=== PATIENT | male | born 1980 | race African-American/Black ===

== ENCOUNTER 2023-02-14 08:52 | Emergency (ER) | payer MEDICAID, OTHER ==
[2023-02-14] MEDS ORDERED: HYDROcodone/Acetaminophen 5/325 mg Tablet ONE (09:08)
[2023-02-14] MEDS ORDERED: Ibuprofen 200 MG TAB ONE (09:09)
== END 2023-02-14 09:49 | disposition home or self-care (01) ==
LOC: CSHERS 08:52
DX: M25.512 Pain in left shoulder (principal); M79.602 Pain in left arm; F17.210 Nicotine dependence, cigarettes, uncomplicated

== ENCOUNTER 2023-04-18 19:29 | Emergency (ER) | payer OTHER ==
[2023-04-18 19:54] LABS: #Basophils 0.1 10x3/uL (0.0-0.2); #Eosinphils 0.1 10x3/uL (0.0-0.5); #Monocytes 0.9 10x3/uL (0.0-1.1); #Neutrophils 7.6 10x3/uL (1.5-8.4); %Basophils 0.7 % (0.0-2.0); %Eosinophils 0.6 % (0.0-6.0); %Lymphocytes 28.1 % (18.0-47.0); %Monocytes 7.3 % (0.0-10.0); %Neutrophils 63.1 % (40.0-75.0); Hematocrit 30.2 % (38.8-50.0); Hemoglobin 9.6 g/dL (13.5-17.5); Mean Corpuscular HGB CONC 31.8 g/dL (32.0-36.0); Mean Corpuscular Hemoglobin 28.1 pg (27.0-33.0); Mean Corpuscular Volume 88.3 fl (81.2-95.1); Mean Platelet Volume 8.8 fl (7.4-10.4); Platelet Count 811 10x3/uL (150-450); RBC Distribution Width 15.7 % (11.5-14.5); Red Blood Cell (RBC) Count 3.42 10x6/uL (4.32-5.72)
[2023-04-18 20:09] LABS: ALT (SGPT) 19 U/L (8-55); AST (SGOT) 13 U/L (5-34); Albumin 3.6 g/dL (3.5-5.0); Alkaline Phosphatase 176 U/L (40-110); Anion Gap 13 mmol/L (10-20); BUN (Urea Nitrogen) 10 mg/dL (8.9-20.6); Bilirubin, Total 0.3 mg/dL (0.2-1.2); Calc. Creatinine Clearance 0 mL/min (70-130); Carbon Dioxide 25 mmol/L (22-29); Chloride 104 mmol/L (98-107); Estimated GFR 103; Globulin 4.4 g/dL (2.4-3.5); Glucose 108 mg/dL (70-105); Potassium 3.7 mmol/L (3.5-5.1); Sodium 138 mmol/L (136-145); Troponin I Less than 0.010 ng/mL (< 0.028)
[2023-04-18] MEDS ORDERED: Ketorolac Tromethamine 30 MG (1 mL) VIAL ONE (20:56)
[2023-04-18] MEDS ORDERED: Morphine 4 MG/ML VIAL ONE (20:56)
[2023-04-18] MEDS ORDERED: methylPREDNISolone Sod Succ/PF 125 MG/2 ML VIAL ONE (21:27)
== END 2023-04-18 22:55 | disposition home or self-care (01) ==
LOC: CSHERS 19:29
DX: M94.0 Chondrocostal junction syndrome [Tietze] (principal); M06.9 Rheumatoid arthritis, unspecified; M10.9 Gout, unspecified; F17.200 Nicotine dependence, unspecified, uncomplicated
CPT/HCPCS: 71045; 80053; 84484; 85025; 93005; 96374; 96375; J1885; J2270; J2930

== ENCOUNTER 2024-10-31 23:06 | Inpatient (IN) | payer OTHER ==
[~2024-10-31 23:06] MED LIST: Iopamidol 370 76% 100 ML VIAL ONE
[2024-10-31 23:23] LABS: #Basophils 0.05 10x3/uL (0.0-0.2); #Eosinophils 0.11 10x3/uL (0.0-0.5); #Monocytes 0.55 10x3/uL (0.0-1.1); #Neutrophils 5.19 10x3/uL (1.5-8.4); %Basophils 0.6 % (0.0-2.0); %Eosinophils 1.3 % (0.0-6.0); %Lymphocytes 29.5 % (18.0-47.0); %Monocytes 6.5 % (0.0-10.0); %Neutrophils 61.9 % (40.0-75.0); Hematocrit 35.7 % (38.8-50.0); Hemoglobin 11.5 g/dL (13.5-17.5); Mean Corpuscular Hemoglobin 30.9 pg (27.0-33.0); Mean Corpuscular Volume 96.0 fL (81.2-95.1); Platelet Count 365 10x3/uL (150-450); Red Blood Cell (RBC) Count 3.72 10x6/uL (4.32-5.72); White Blood Cell (WBC) Count 8.40 10x3/uL (3.5-10.5)
[2024-10-31 23:31] LABS: INR-International Normal Ratio 1.0; PTT 24.2 sec (22.0-33.0); Prothrombin Time 11.1 sec (9.5-12.1)
[2024-10-31 23:35] LABS: ALT (SGPT) 18 U/L (Less than 45); AST (SGOT) 17 U/L (11-34); Albumin 3.9 g/dL (3.1-4.5); Alkaline Phosphatase 159 U/L (40-110); Anion Gap 15 mmol/L (10-20); BUN (Urea Nitrogen) 13 mg/dL (8.9-20.6); Bilirubin, Total 0.5 mg/dL (0.3-1.2); Calc. Creatinine Clearance 0 mL/min (70-130); Calcium 9.2 mg/dL (7.8-10.44); Carbon Dioxide 23 mmol/L (22-29); Chloride 107 mmol/L (98-107); Globulin 3.4 g/dL (2.4-3.5); Glucose 133 mg/dL (70-105); Potassium 3.9 mmol/L (3.5-5.1); Sodium 141 mmol/L (136-145)
[2024-10-31 23:39] LABS: Acetaminophen Less than 10 mcg/mL (Less than 10); Salicylate Less than 8.0 mg/dL (Less than 8.0)
[2024-10-31 23:41] LABS: Troponin I Less than 0.010 ng/mL (< 0.028)
[2024-11-01] MEDS ORDERED: Aspirin Chewable 81 MG TAB ONE (00:07)
[2024-11-01] MEDS ORDERED: Ondansetron PF 4 MG/2 ML Vial IVP PRN (00:07)
[2024-11-01 01:40] VITALS: BMI 25.9
[2024-11-01 03:44] LABS: #Basophils 0.05 10x3/uL (0.0-0.2); #Eosinophils 0.07 10x3/uL (0.0-0.5); #Monocytes 0.50 10x3/uL (0.0-1.1); #Neutrophils 5.40 10x3/uL (1.5-8.4); %Basophils 0.6 % (0.0-2.0); %Eosinophils 0.8 % (0.0-6.0); %Lymphocytes 28.7 % (18.0-47.0); %Monocytes 5.9 % (0.0-10.0); %Neutrophils 63.8 % (40.0-75.0); Hematocrit 35.4 % (38.8-50.0); Hemoglobin 11.3 g/dL (13.5-17.5); Mean Corpuscular Hemoglobin 30.5 pg (27.0-33.0); Mean Corpuscular Volume 95.7 fL (81.2-95.1); Platelet Count 372 10x3/uL (150-450); Red Blood Cell (RBC) Count 3.70 10x6/uL (4.32-5.72); White Blood Cell (WBC) Count 8.47 10x3/uL (3.5-10.5)
[2024-11-01 04:04] LABS: ALT (SGPT) 15 U/L (Less than 45); AST (SGOT) 15 U/L (11-34); Albumin 3.8 g/dL (3.1-4.5); Alkaline Phosphatase 153 U/L (40-110); Anion Gap 12 mmol/L (10-20); BUN (Urea Nitrogen) 13 mg/dL (8.9-20.6); Bilirubin, Total 0.6 mg/dL (0.3-1.2); Calc. Creatinine Clearance 96 mL/min (70-130); Calcium 9.5 mg/dL (7.8-10.44); Carbon Dioxide 27 mmol/L (22-29); Cardiac Risk 5.2 (Less than 4.5); Chloride 107 mmol/L (98-107); Cholesterol 166 mg/dl (< 200 Desired); Globulin 3.7 g/dL (2.4-3.5); Glucose 101 mg/dL (70-105); HDL Cholesterol 32 mg/dL (>60 Neg Risk); LDL Cholesterol, Calculated 110 mg/dL; Potassium 4.3 mmol/L (3.5-5.1); Sodium 142 mmol/L (136-145); Triglycerides 120 mg/dL (Less than 150)
[2024-11-01 07:00] LABS: Glucose, Urine (Dipstick) Normal (Negative); Leukocyte 100 (Negative); Protein, Urine (Dipstick) 15 mg/dl (Neg-Trace); Specific Gravity, Urine 1.010 (1.005-1.030)
[2024-11-01 07:06] LABS: Bacteria/HPF None Seen HPF (None Seen); CAUTI Indications for Culture Alt mental st,lethar; RBC/HPF 0-3 HPF (0-3)
[2024-11-01 07:07] LABS: Urine Culture Reflex No No
[2024-11-01] MEDS: Famotidine/PF 20 mg/2ml Vial SLOW IVP SCH (07:47)
[2024-11-01] MEDS: Enoxaparin 40 MG (0.4 mL) SYRINGE SC SCH (09:11)
[2024-11-01] MEDS: Aspirin 81 mg Enteric Coated Tablet PO SCH (09:12)
[2024-11-01] MEDS: Famotidine 20 MG TAB PO SCH (09:12)
[2024-11-01] MEDS: predniSONE 20 MG TAB PO SCH (09:12)
[2024-11-01] MEDS: Ibuprofen 800 MG TAB PO SCH (09:13)
[2024-11-01] MEDS ORDERED: Bisacodyl 10 MG SUPP PR PRN (09:36)
[2024-11-01] MEDS ORDERED: Senokot S 8.6-50 MG TAB PO PRN (09:36)
[2024-11-01] MEDS ORDERED: Calcium Carbonate 500 MG ChewTAB PO PRN (09:36)
[2024-11-01 09:50] LABS: Cocaine Metabolite Screen Negative (Negative); THC/Cannabinoid Screen PRELIM POSITIVE (Negative); Tricyclic Screen Negative (Negative)
[2024-11-01] MEDS: Acetaminophen 325 MG TAB PO SCH (11:35)
[2024-11-01] MEDS: Acetaminophen 325 MG TAB PO PRN (21:06)
[2024-11-02 04:02] LABS: #Basophils 0.03 10x3/uL (0.0-0.2); #Eosinophils 0.06 10x3/uL (0.0-0.5); #Monocytes 0.46 10x3/uL (0.0-1.1); #Neutrophils 4.46 10x3/uL (1.5-8.4); %Basophils 0.4 % (0.0-2.0); %Eosinophils 0.7 % (0.0-6.0); %Lymphocytes 38.2 % (18.0-47.0); %Monocytes 5.6 % (0.0-10.0); %Neutrophils 54.7 % (40.0-75.0); Hematocrit 32.3 % (38.8-50.0); Hemoglobin 10.6 g/dL (13.5-17.5); Mean Corpuscular Hemoglobin 30.6 pg (27.0-33.0); Mean Corpuscular Volume 93.4 fL (81.2-95.1); Platelet Count 357 10x3/uL (150-450); Red Blood Cell (RBC) Count 3.46 10x6/uL (4.32-5.72); White Blood Cell (WBC) Count 8.16 10x3/uL (3.5-10.5)
[2024-11-02 04:22] LABS: Anion Gap 14 mmol/L (10-20); BUN (Urea Nitrogen) 11 mg/dL (8.9-20.6); Calc. Creatinine Clearance 101 mL/min (70-130); Calcium 8.7 mg/dL (7.8-10.44); Carbon Dioxide 23 mmol/L (22-29); Chloride 105 mmol/L (98-107); Glucose 93 mg/dL (70-105); Sodium 138 mmol/L (136-145)
[2024-11-02 04:28] LABS: Potassium 4.1 mmol/L (3.5-5.1)
[2024-11-04 06:11] LABS: Anion Gap 10 mmol/L (10-20); BUN (Urea Nitrogen) 11 mg/dL (8.9-20.6); Calc. Creatinine Clearance 83 mL/min (70-130); Calcium 8.7 mg/dL (7.8-10.44); Carbon Dioxide 27 mmol/L (22-29); Chloride 108 mmol/L (98-107); Glucose 94 mg/dL (70-105); Potassium 3.8 mmol/L (3.5-5.1); Sodium 141 mmol/L (136-145)
[2024-11-04] MEDS ORDERED: PROPOFOL 40 ML ONE (11:28)
[2024-11-04] MEDS ORDERED: Lidocaine 1% PF 5 ML VIAL ONE (11:29)
[2024-11-04] MEDS ORDERED: Lidocaine 1% (PF) 30 ML VIAL ONE (11:55)
[2024-11-04] MEDS ORDERED: Triple Antibiotic Oint 1 GM Packet ONE (11:56)
[2024-11-04] MEDS ORDERED: PHENYLEPHRINE-NS 100 MCG/ML 10 ML SYRINGE ONE (13:14)
[2024-11-04 15:19] VITALS: BMI 25.9
[2024-11-05] MEDS: HYDROcodone/Acetaminophen 5/325 mg Tablet PO PRN (09:10)
[2024-11-05] MEDS: Melatonin 3 MG TAB PO PRN (21:38)
[2024-11-06 04:09] LABS: #Basophils 0.05 10x3/uL (0.0-0.2); #Eosinophils 0.21 10x3/uL (0.0-0.5); #Monocytes 0.42 10x3/uL (0.0-1.1); #Neutrophils 3.10 10x3/uL (1.5-8.4); %Basophils 0.7 % (0.0-2.0); %Eosinophils 2.9 % (0.0-6.0); %Lymphocytes 47.9 % (18.0-47.0); %Monocytes 5.8 % (0.0-10.0); %Neutrophils 42.4 % (40.0-75.0); Hematocrit 34.2 % (38.8-50.0); Hemoglobin 11.2 g/dL (13.5-17.5); Mean Corpuscular Hemoglobin 30.8 pg (27.0-33.0); Mean Corpuscular Volume 94.0 fL (81.2-95.1); Platelet Count 373 10x3/uL (150-450); Red Blood Cell (RBC) Count 3.64 10x6/uL (4.32-5.72); White Blood Cell (WBC) Count 7.29 10x3/uL (3.5-10.5)
[2024-11-06 04:24] LABS: ALT (SGPT) 20 U/L (Less than 45); AST (SGOT) 21 U/L (11-34); Albumin 3.4 g/dL (3.1-4.5); Alkaline Phosphatase 136 U/L (40-110); Anion Gap 12 mmol/L (10-20); BUN (Urea Nitrogen) 13 mg/dL (8.9-20.6); Bilirubin, Total 0.3 mg/dL (0.3-1.2); Calc. Creatinine Clearance 82 mL/min (70-130); Calcium 8.6 mg/dL (7.8-10.44); Carbon Dioxide 26 mmol/L (22-29); Chloride 108 mmol/L (98-107); Globulin 3.3 g/dL (2.4-3.5); Glucose 132 mg/dL (70-105); Potassium 3.8 mmol/L (3.5-5.1); Sodium 142 mmol/L (136-145)
[2024-11-06] MEDS: VANCOMYCIN 1.75 GM/350 ML BAG 1.75 GM in Premix 1 BAG IVPB SCH (09:35)
[2024-11-06] MEDS: Vancomycin HCl 750 MG in Sodium Chloride 0.9% 250 ML 250 ML IVPB SCH (20:34)
[2024-11-07 04:33] LABS: #Basophils 0.07 10x3/uL (0.0-0.2); #Eosinophils 0.24 10x3/uL (0.0-0.5); #Monocytes 0.38 10x3/uL (0.0-1.1); #Neutrophils 2.71 10x3/uL (1.5-8.4); %Basophils 1.1 % (0.0-2.0); %Eosinophils 3.6 % (0.0-6.0); %Lymphocytes 48.1 % (18.0-47.0); %Monocytes 5.8 % (0.0-10.0); %Neutrophils 41.1 % (40.0-75.0); Hematocrit 35.7 % (38.8-50.0); Hemoglobin 11.8 g/dL (13.5-17.5); Mean Corpuscular Hemoglobin 30.9 pg (27.0-33.0); Mean Corpuscular Volume 93.5 fL (81.2-95.1); Platelet Count 387 10x3/uL (150-450); Red Blood Cell (RBC) Count 3.82 10x6/uL (4.32-5.72); White Blood Cell (WBC) Count 6.59 10x3/uL (3.5-10.5)
[2024-11-07 04:46] LABS: Vancomycin, Random 19.4 ug/mL (See Comment)
[2024-11-07 04:53] LABS: ALT (SGPT) 26 U/L (Less than 45); AST (SGOT) 23 U/L (11-34); Albumin 3.5 g/dL (3.1-4.5); Alkaline Phosphatase 135 U/L (40-110); Anion Gap 16 mmol/L (10-20); BUN (Urea Nitrogen) 11 mg/dL (8.9-20.6); Bilirubin, Total 0.4 mg/dL (0.3-1.2); Calc. Creatinine Clearance 75 mL/min (70-130); Calcium 8.9 mg/dL (7.8-10.44); Carbon Dioxide 21 mmol/L (22-29); Chloride 110 mmol/L (98-107); Globulin 3.2 g/dL (2.4-3.5); Glucose 96 mg/dL (70-105); Potassium 3.8 mmol/L (3.5-5.1); Sodium 143 mmol/L (136-145)
[2024-11-08 06:09] LABS: #Neutrophils 2.45 10x3/uL (1.5-8.4); %Basophils 1.5 % (0.0-2.0); %Eosinophils 3.3 % (0.0-6.0); %Lymphocytes 46.6 % (18.0-47.0); %Monocytes 7.8 % (0.0-10.0); %Neutrophils 40.6 % (40.0-75.0); Hematocrit 34.8 % (38.8-50.0); Hemoglobin 11.3 g/dL (13.5-17.5); Mean Corpuscular Hemoglobin 31.0 pg (27.0-33.0); Mean Corpuscular Volume 95.6 fL (81.2-95.1); Platelet Count 396 10x3/uL (150-450); Red Blood Cell (RBC) Count 3.64 10x6/uL (4.32-5.72); White Blood Cell (WBC) Count 6.03 10x3/uL (3.5-10.5)
[2024-11-08 06:10] LABS: #Basophils 0.09 10x3/uL (0.0-0.2); #Eosinophils 0.20 10x3/uL (0.0-0.5); #Monocytes 0.47 10x3/uL (0.0-1.1)
[2024-11-08 06:33] LABS: ALT (SGPT) 33 U/L (Less than 45); AST (SGOT) 31 U/L (11-34); Albumin 3.4 g/dL (3.1-4.5); Alkaline Phosphatase 126 U/L (40-110); Anion Gap 14 mmol/L (10-20); BUN (Urea Nitrogen) 12 mg/dL (8.9-20.6); Bilirubin, Total 0.3 mg/dL (0.3-1.2); Calc. Creatinine Clearance 74 mL/min (70-130); Calcium 8.7 mg/dL (7.8-10.44); Carbon Dioxide 23 mmol/L (22-29); Chloride 110 mmol/L (98-107); Globulin 3.1 g/dL (2.4-3.5); Glucose 88 mg/dL (70-105); Potassium 3.7 mmol/L (3.5-5.1); Sodium 143 mmol/L (136-145)
[2024-11-08 06:39] LABS: Vancomycin, Random 16.6 ug/mL (See Comment)
[2024-11-10 04:24] LABS: #Basophils 0.09 10x3/uL (0.0-0.2); #Eosinophils 0.23 10x3/uL (0.0-0.5); #Monocytes 0.52 10x3/uL (0.0-1.1); #Neutrophils 2.73 10x3/uL (1.5-8.4); %Basophils 1.5 % (0.0-2.0); %Eosinophils 3.7 % (0.0-6.0); %Lymphocytes 41.5 % (18.0-47.0); %Monocytes 8.5 % (0.0-10.0); %Neutrophils 44.5 % (40.0-75.0); Hematocrit 38.2 % (38.8-50.0); Hemoglobin 12.1 g/dL (13.5-17.5); Mean Corpuscular Hemoglobin 30.6 pg (27.0-33.0); Mean Corpuscular Volume 96.5 fL (81.2-95.1); Platelet Count 394 10x3/uL (150-450); Red Blood Cell (RBC) Count 3.96 10x6/uL (4.32-5.72); White Blood Cell (WBC) Count 6.14 10x3/uL (3.5-10.5)
[2024-11-10 04:38] LABS: Vancomycin, Random 14.1 ug/mL (See Comment)
[2024-11-10 04:39] LABS: ALT (SGPT) 66 U/L (Less than 45); AST (SGOT) 49 U/L (11-34); Albumin 3.6 g/dL (3.1-4.5); Alkaline Phosphatase 140 U/L (40-110); Anion Gap 11 mmol/L (10-20); BUN (Urea Nitrogen) 13 mg/dL (8.9-20.6); Bilirubin, Total 0.3 mg/dL (0.3-1.2); Calc. Creatinine Clearance 89 mL/min (70-130); Calcium 9.0 mg/dL (7.8-10.44); Carbon Dioxide 27 mmol/L (22-29); Chloride 107 mmol/L (98-107); Globulin 3.3 g/dL (2.4-3.5); Glucose 120 mg/dL (70-105); Potassium 3.7 mmol/L (3.5-5.1); Sodium 141 mmol/L (136-145)
[2024-11-10] MEDS: Vancomycin 1 GM in Sodium Chloride 0.9% 250 ML 250 ML IVPB SCH (08:37)
[2024-11-11 06:20] LABS: ALT (SGPT) 59 U/L (Less than 45); AST (SGOT) 35 U/L (11-34); Albumin 3.4 g/dL (3.1-4.5); Alkaline Phosphatase 134 U/L (40-110); Anion Gap 15 mmol/L (10-20); BUN (Urea Nitrogen) 10 mg/dL (8.9-20.6); Bilirubin, Total 0.2 mg/dL (0.3-1.2); Calc. Creatinine Clearance 100 mL/min (70-130); Calcium 8.6 mg/dL (7.8-10.44); Carbon Dioxide 22 mmol/L (22-29); Chloride 110 mmol/L (98-107); Globulin 3.1 g/dL (2.4-3.5); Glucose 130 mg/dL (70-105); Potassium 3.7 mmol/L (3.5-5.1); Sodium 143 mmol/L (136-145)
[2024-11-11 06:23] LABS: #Basophils 0.11 10x3/uL (0.0-0.2); #Eosinophils 0.22 10x3/uL (0.0-0.5); #Monocytes 0.64 10x3/uL (0.0-1.1); #Neutrophils 3.23 10x3/uL (1.5-8.4); %Basophils 1.5 % (0.0-2.0); %Eosinophils 3.0 % (0.0-6.0); %Lymphocytes 42.4 % (18.0-47.0); %Monocytes 8.7 % (0.0-10.0); %Neutrophils 44.1 % (40.0-75.0); Hematocrit 37.1 % (38.8-50.0); Hemoglobin 12.0 g/dL (13.5-17.5); Mean Corpuscular Hemoglobin 30.9 pg (27.0-33.0); Mean Corpuscular Volume 95.6 fL (81.2-95.1); Platelet Count 428 10x3/uL (150-450); Red Blood Cell (RBC) Count 3.88 10x6/uL (4.32-5.72); White Blood Cell (WBC) Count 7.33 10x3/uL (3.5-10.5)
[2024-11-12 05:07] LABS: #Basophils 0.08 10x3/uL (0.0-0.2); #Eosinophils 0.20 10x3/uL (0.0-0.5); #Monocytes 0.63 10x3/uL (0.0-1.1); #Neutrophils 3.81 10x3/uL (1.5-8.4); %Basophils 1.1 % (0.0-2.0); %Eosinophils 2.8 % (0.0-6.0); %Lymphocytes 32.8 % (18.0-47.0); %Monocytes 8.9 % (0.0-10.0); %Neutrophils 54.1 % (40.0-75.0); Hematocrit 37.2 % (38.8-50.0); Hemoglobin 12.1 g/dL (13.5-17.5); Mean Corpuscular Hemoglobin 30.9 pg (27.0-33.0); Mean Corpuscular Volume 95.1 fL (81.2-95.1); Platelet Count 413 10x3/uL (150-450); Red Blood Cell (RBC) Count 3.91 10x6/uL (4.32-5.72); White Blood Cell (WBC) Count 7.05 10x3/uL (3.5-10.5)
[2024-11-12 05:20] LABS: Vancomycin, Random 19.1 ug/mL (See Comment)
[2024-11-12 05:28] LABS: ALT (SGPT) 51 U/L (Less than 45); AST (SGOT) 28 U/L (11-34); Albumin 3.8 g/dL (3.1-4.5); Alkaline Phosphatase 125 U/L (40-110); Anion Gap 13 mmol/L (10-20); BUN (Urea Nitrogen) 12 mg/dL (8.9-20.6); Bilirubin, Total 0.4 mg/dL (0.3-1.2); Calc. Creatinine Clearance 98 mL/min (70-130); Calcium 9.1 mg/dL (7.8-10.44); Carbon Dioxide 24 mmol/L (22-29); Chloride 109 mmol/L (98-107); Globulin 3.1 g/dL (2.4-3.5); Glucose 95 mg/dL (70-105); Potassium 4.0 mmol/L (3.5-5.1); Sodium 142 mmol/L (136-145)
[2024-11-12 12:44] VITALS: BP 106/71; TEMP 98
== END 2024-11-12 14:28 | disposition home or self-care (01) | DRG 41 ==
LOC: CSHERS 23:06 → CSHTELE 11-01 00:07 → OBSVTOIN 11-03 13:12
PROVIDERS: ADMIT Internal Medicine; ATTEND Internal Medicine
PROC: 3E03329 Introduction of Other Anti-infective into Peripheral Vein, Percutaneous Approach (ICD-10-PCS; 2024-11-03)
PROC: 0Y6R0Z0 Detachment at Right 2nd Toe, Complete, Open Approach (ICD-10-PCS; principal; 2024-11-04)
DX: G92.8 Other toxic encephalopathy (principal); M86.171 Other acute osteomyelitis, right ankle and foot; R47.01 Aphasia; T50.911A Poisoning by multiple unspecified drugs, medicaments and biological substances, accidental (unintentional), initial encounter; F12.10 Cannabis abuse, uncomplicated; F10.90 Alcohol use, unspecified, uncomplicated; F17.210 Nicotine dependence, cigarettes, uncomplicated; R47.1 Dysarthria and anarthria; F19.10 Other psychoactive substance abuse, uncomplicated; M06.89 Other specified rheumatoid arthritis, multiple sites; M10.9 Gout, unspecified; Z99.3 Dependence on wheelchair
CPT/HCPCS: 36415; 36416; 70450; 70496; 70498; 70551; 71045; 76705; 80048; 80053; 80061; 80202; 80306; 80307; 81001; 83036; 84443; 84484; 85025; 85610; 85730; 86140; 88305; 88311; 93005; 93306; 94760; 97139; G0378; J0665; J1650; J2543; J2704; J3373; J3375; J7050; J7120; J7512; Q9967